=== PATIENT | male | born 1950 | race Hispanic/Latino ===

== ENCOUNTER → 2018-07-24 | Day surgery (SDC) | payer MEDICARE ==
[2018-07-22 09:33] LABS: BASOPHILS # (AUTO) 0.1 (0.0-0.1); BASOPHILS % 1.2 % (0.0-1.0); EOSINOPHILS # (AUTO) 0.2 (0.0-0.4); EOSINOPHILS % 3.6 % (0.0-6.0); HEMATOCRIT 40.5 % (38.2-49.6); HEMOGLOBIN 13.6 g/dL (14.0-18.0); LYMPHOCYTES # (AUTO) 2.4 (1.0-3.2); LYMPHOCYTES % 35.8 % (18.0-39.1); MEAN CORPUSCULAR HEMOGLOBIN 30.2 pg (28-32); MEAN CORPUSCULAR HGB CONC 33.6 g/dL (31-35); MEAN CORPUSCULAR VOLUME 89.8 fL (81-99); MONOCYTES # (AUTO) 0.7 (0.2-0.8); MONOCYTES % 10.4 % (4.4-11.3); NEUTROPHILS # (AUTO) 3.2 (2.1-6.9); PLATELET COUNT 222 x10e3/uL (140-360); RED BLOOD COUNT 4.51 x10e6/uL (4.3-5.7)
[~2018-07-24] MED LIST: ATORVASTATIN CA10 MG PO; LIDOCAINE HCL 2% LOCAL INJ 5 ML SDV VIAL INJ ONE; LOSARTAN POTASS50 MG PO; METFORMIN HCL500 MG PO; MIDAZOLAM HCL 2 MG/2 ML VIAL ONE; OMEGA 3 1,0001 EACH PO; PROPOFOL IV EMULSION 10 MG/ML 50 ML VIAL ONE; VITAMIN D2000 UNI1 PO
[2018-07-24 11:15] VITALS: BP 152/89
== END | disposition home or self-care (01) ==
LOC: OR 07:41
PROVIDERS: ATTEND Internal Medicine Gastroenterology
DX: Z12.11 Encounter for screening for malignant neoplasm of colon (principal); D12.2 Benign neoplasm of ascending colon; K57.30 Diverticulosis of large intestine without perforation or abscess without bleeding; K64.8 Other hemorrhoids; Z71.3 Dietary counseling and surveillance; G47.33 Obstructive sleep apnea (adult) (pediatric); E66.01 Morbid (severe) obesity due to excess calories; E11.9 Type 2 diabetes mellitus without complications; I10 Essential (primary) hypertension; Z01.810 Encounter for preprocedural cardiovascular examination; Z01.812 Encounter for preprocedural laboratory examination; Z79.84 Long term (current) use of oral hypoglycemic drugs; Z68.41 Body mass index [BMI] 40.0-44.9, adult
CPT/HCPCS: 36415 ×2; 45385; 82948; 85025; 88305; 93005; J2001; J2250; J2704; 45378

== ENCOUNTER → 2020-02-03 | Day surgery (SDC) | payer MEDICARE, OTHER ==
[2020-01-29 09:26] LABS: BASOPHILS # (AUTO) 0.1 (0.0-0.1); BASOPHILS % 1.6 % (0.0-1.0); EOSINOPHILS # (AUTO) 0.3 (0.0-0.4); EOSINOPHILS % 4.5 % (0.0-6.0); HEMATOCRIT 41.1 % (38.2-49.6); HEMOGLOBIN 13.5 g/dL (14.0-18.0); LYMPHOCYTES # (AUTO) 2.4 (1.0-3.2); LYMPHOCYTES % 36.8 % (18.0-39.1); MEAN CORPUSCULAR HEMOGLOBIN 29.9 pg (28-32); MEAN CORPUSCULAR HGB CONC 32.8 g/dL (31-35); MEAN CORPUSCULAR VOLUME 90.9 fL (81-99); MONOCYTES # (AUTO) 0.5 (0.2-0.8); MONOCYTES % 8.3 % (4.4-11.3); NEUTROPHILS # (AUTO) 3.1 (2.1-6.9); NEUTROPHILS % 47.9 % (38.7-80.0); PLATELET COUNT 217 x10e3/uL (140-360); RED BLOOD COUNT 4.52 x10e6/uL (4.3-5.7); RED CELL DISTRIBUTION WIDTH 12.8 % (11.7-14.4)
[2020-01-29 10:16] LABS: ANION GAP 14.1 mmol/L (8-16); BLOOD UREA NITROGEN 12 mg/dL (7-26); BUN/CREATININE RATIO 13 (6-25); CALCIUM 8.9 mg/dL (8.4-10.2); CARBON DIOXIDE 22 mmol/L (22-29); CHLORIDE 109 mmol/L (98-107); CREATININE, SERUM 0.94 mg/dL (0.72-1.25); EST GLOMERULAR FILTRATION RATE > 60 ML/MIN (60-); GLUCOSE 119 mg/dL (74-118); POTASSIUM 4.1 mmol/L (3.5-5.1); SODIUM 141 mmol/L (136-145)
--- NOTE | 2020-01-29 10:32 | Diagnostic Imaging Report ---
EXAMINATION: CHEST 2 VIEWS INDICATION: Pre-operative COMPARISON: None FINDINGS: LINES/TUBES:None LUNGS:The lungs are well-inflated. No focal consolidation or pulmonary edema. PLEURA:No pleural effusion or pneumothorax. MEDIASTINUM:The cardiomediastinal silhouette appears normal in size and shape. BONES/SOFT TISSUES:No acute osseous injury. ABDOMEN:No free air under the diaphragm. IMPRESSION: No focal pneumonia or pulmonary edema. Signed by: Juan Winter MD on 01/29/2020 10:29 AM
[~2020-02-03] MED LIST changes: +ASPIRIN81 MG PO; +CEFAZOLIN SOD 1 GM/NS 50ML 100 ML IV ONE; +DESFLURANE 240 ML BTL INH ONE; +DEXAMETHASONE SOD PHOS INJ 4 MG/ML VIAL ONE; +EPINEPHRINE 1 MG/ML 30ML VIAL ONE; +FENTANYL CITRATE/PF 100MCG/2 ML INJ ONE; +GLYCOPYRROLATE INJ 0.2 MG/ML VIAL ONE; +HYDROCODONE/APAP 5MG-325MG TAB ONE; +KETOROLAC TROMETHAMINE 30 MG/ML VIAL ONE; +LIDOCAINE 2%/ EPINEPHRINE 20ML MDV ONE; +NEOSTIGMINE 1 MG/ML 10ML VIAL ONE; +ONDANSETRON HCL INJ 2MG/ML 2ML 2 MG/ML VIAL ONE; +OZEMPIC0.25 MG/0. SC; +PROPOFOL IV EMULSION 10 MG/ML 20 ML VIAL ONE; -PROPOFOL IV EMULSION 10 MG/ML 50 ML VIAL ONE; +ROCURONIUM BROMIDE 10 MG/ML 5ML VIAL IV ONE; +ROPIVACAINE 0.5% 5 MG/ML 30 ML SDV ONE; +VIT B12 PO; +VIT D PO
[2020-02-03 14:10] VITALS: BP 122/64
--- NOTE | 2020-02-11 21:11 | Operative Report ---
DATE OF PROCEDURE: 02/03/2020 SURGEON: Sterling Cleary MD PREOPERATIVE DIAGNOSIS: Left shoulder rotator cuff tear, left shoulder acromioclavicular joint arthritis. POSTOPERATIVE DIAGNOSES: Left shoulder rotator cuff tear with left shoulder acromioclavicular joint arthritis, left shoulder synovitis, and left shoulder partial biceps tendon rupture. OPERATIONS AND PROCEDURE PERFORMED: The patient underwent a left shoulder examination under anesthesia, left shoulder arthroscopy, left shoulder arthroscopic debridement of synovitis, left shoulder arthroscopic biceps tenolysis, left shoulder arthroscopic rotator cuff reconstruction, left shoulder arthroscopic subacromial decompression and acromioplasty, and left shoulder arthroscopic distal clavicle resection. 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 ANESTHESIA: General endotracheal intubation anesthesia. IV FLUIDS: As per anesthesia record. BLOOD LOSS: Minimal. BRIEF DESCRIPTION OF THE PATIENT'S OPERATIVE PROCEDURE: Mr. Mercado was taken the operating room and placed in supine position on the operating room table. Following induction of general anesthesia as well as endotracheal intubation, the patient's left upper extremity was examined under anesthesia. He was found to have a normal-appearing upper extremity. There was no gross abnormalities of the shoulder. The patient had full passive range of motion of shoulder. There was no evidence of instability. The patient's upper extremity was prepped and draped in standard surgical fashion. Standard posterolateral and anterior portals were created without difficulty. The scope was placed in the shoulder joint atraumatically. Examination of the glenohumeral articulation demonstrated no significant evidence of arthrosis. There was diffuse synovitis in the shoulder joint. The long head of the biceps tendon was found within the shoulder joint, but severely torn. There were no loose bodies in the axillary pouch. Examination of the rotator cuff tissue demonstrated a full-thickness rotator cuff tear. A probe was placed in the shoulder joint and the biceps tendon was probed thoroughly. Approximately 70% of the biceps tendon was found to be ruptured at its takeoff from the superior edge of the glenoid. The remaining intra-articular portion of the biceps was in severely poor condition. The patient, therefore, underwent a biceps tenolysis. A biter was used to release the long head of the biceps tendon and its insertion into the superior aspect of the labrum and glenoid. The shaver was placed in the shoulder joint and the biceps stump was debrided. The synovitis was also debrided at this time. The rotator cuff injury was also debrided. The shaver was then used to debride the insertion site for the rotator cuff to a bleeding bony bed. The shoulder was deflated with sterile normal saline. The scope was placed in subacromial space and significant bursal inflammation was encountered. A lateral portal was created with an outside-in technique. A bursectomy was performed. The patient was found to have a downward sloping acromion. A shaver was used to further debride the insertion site for the rotator cuff. An accessory anterolateral portal was created. A single suture anchor was inserted into the greater tuberosity of the humerus and the suture arms from the anchor were woven through the rotator cuff tissue. The rotator cuff was then advanced and tied firmly over its insertion site, repairing the rotator cuff tear in its entirety. The coracoacromial ligament was then resected. An aggressive acromioplasty was performed. The shoulder was placed through range of motion and there was no impingement. The anterior portal was then transferred to the subacromial space at the level of the AC joint. The shaver was placed through the anterior portal and the acromioclavicular joint was isolated. A 1 cm section of the distal clavicle was then resected in its entirety. The scope was then used to confirm complete resection of the end of the clavicle. The shoulder was then deflated with sterile normal saline. All portal sites were closed using 4-0 nylon suture. The portal sites were then dressed sterilely and the patient was provided a shoulder immobilizer, awakened, and taken to postanesthesia care in stable condition. MD MARLENE Burnett/ELIEZER /[id number]
== END | disposition home or self-care (01) ==
LOC: OR 07:24
PROVIDERS: ATTEND Specialist
DX: M75.112 Incomplete rotator cuff tear or rupture of left shoulder, not specified as traumatic (principal); S46.112A Strain of muscle, fascia and tendon of long head of biceps, left arm, initial encounter; M19.012 Primary osteoarthritis, left shoulder; M19.011 Primary osteoarthritis, right shoulder; M65.812 Other synovitis and tenosynovitis, left shoulder; E11.9 Type 2 diabetes mellitus without complications; M54.9 Dorsalgia, unspecified; G47.33 Obstructive sleep apnea (adult) (pediatric); I10 Essential (primary) hypertension; E78.5 Hyperlipidemia, unspecified; E66.01 Morbid (severe) obesity due to excess calories; K21.9 Gastro-esophageal reflux disease without esophagitis; R00.1 Bradycardia, unspecified; Z01.810 Encounter for preprocedural cardiovascular examination; X58.XXXA Exposure to other specified factors, initial encounter; Z01.812 Encounter for preprocedural laboratory examination; Z01.818 Encounter for other preprocedural examination; Z11.59 Encounter for screening for other viral diseases; Z79.82 Long term (current) use of aspirin; Z68.41 Body mass index [BMI] 40.0-44.9, adult
CPT/HCPCS: 29824; 29826; 29827; 36415 ×2; 71046; 80048; 82948; 85025; 93005; C1713; J0690; J1100; J1885; J2001 ×2; J2250; J2405; J2704; J2710; J2795; J3010; U0002